=== PATIENT | male | born 1965 | race Caucasian/White ===

== ENCOUNTER 2016-07-11 19:25 | Emergency (ER) | payer SELFPAY ==
[~2016-07-11] VITALS: Ht 167.6 cm; Wt 90.7 kg
[2016-07-11 19:36] VITALS: BP 174/108
[2016-07-11] MEDS: cloNIDine HCL 0.1 MG TAB PO ONE (21:21)
== END 2016-07-11 21:58 | disposition home or self-care (01) ==
LOC: ER 19:34
DX: I10 Essential (primary) hypertension (principal); E11.9 Type 2 diabetes mellitus without complications; Z76.0 Encounter for issue of repeat prescription
CPT/HCPCS: 82962

== ENCOUNTER 2017-03-31 11:59 | Emergency (ER) | payer SELFPAY ==
[~2017-03-31] VITALS: Ht 167.6 cm; Wt 90.7 kg
[2017-03-31 12:47] VITALS: BP 156/78
== END 2017-03-31 15:07 | disposition home or self-care (01) ==
LOC: ER 11:59
DX: J20.9 Acute bronchitis, unspecified (principal); E11.9 Type 2 diabetes mellitus without complications; Z90.89 Acquired absence of other organs
CPT/HCPCS: 71020